=== PATIENT | male | born 1975 | race Caucasian/White ===

== ENCOUNTER 2017-09-19 09:04 | Emergency (ER) | payer OTHER | END 2017-09-19 10:15 | disposition home or self-care (01) | LOC: MADERS 09:04 | DX: T63.301A Toxic effect of unspecified spider venom, accidental (unintentional), initial encounter (principal); L03.116 Cellulitis of left lower limb | CPT/HCPCS: 99282 ==

== ENCOUNTER 2019-11-29 16:58 | Outpatient (CLI) | payer OTHER ==
--- NOTE | 2019-11-29 17:30 | RAD ---
Exam: XR Knee Rt 4 View STANDARD HISTORY: Right knee pain. No known injury. COMPARISON: None FINDINGS: Moderate-sized suprapatellar knee joint effusion is present. No acute fracture, dislocation, or other acute osseous abnormality is identified. IMPRESSION: 1. Moderate-sized right knee joint effusion without acute osseous abnormality. MRI right knee would b e helpful for further evaluation.
== END 2019-11-29 16:59 | disposition home or self-care (01) ==
LOC: MADRAD 16:58
PROVIDERS: ATTEND Family Medicine
DX: M25.561 Pain in right knee (principal); M25.461 Effusion, right knee